=== PATIENT | female | born 1985 | race Two or more races ===

== ENCOUNTER 2022-11-11 16:36 | Emergency (ER) | payer BC ==
[~2022-11-11] VITALS: Ht 149.9 cm; Wt 69.5 kg
[2022-11-11 22:13] VITALS: TEMP 98.3
[2022-11-11] MEDS ORDERED: fentaNYL/PF 50MCG/1 ML 2ML syringe IV ONE (23:50)
[2022-11-11] MEDS ORDERED: ketorolac trometh. 30mg/ml inj. IV ONE (23:50)
[2022-11-11] MEDS ORDERED: metoclopramide 5 mg/ml inj IV ONE (23:50)
[2022-11-11] MEDS ORDERED: normal saline 1000ML IV soln IVB ONE (23:50)
[2022-11-11] MEDS ORDERED: LORazepam 2 mg/ml vial IV ONE (23:50)
[2022-11-12 00:22] LABS: BASOPHILS # (AUTO) 0.1 X10'3 (0-0.2); EOSINOPHILS % (AUTO) 0 % (0-6); HEMATOCRIT 41.2 % (35.0-45.0); HEMOGLOBIN 13.8 g/dl (12.0-16.0); LYMPHOCYTES # (AUTO) 1.5 X10'3 (1.1-4.8); LYMPHOCYTES % (AUTO) 12.5 % (21-51); MEAN CORPUSCULAR HEMOGLOBIN 26.8 PG (27.0-31.0); MEAN CORPUSCULAR HGB CONC 33.4 g/dL (33.0-36.5); MEAN CORPUSCULAR VOLUME 80.1 FL (78-98); MEAN PLATELET VOLUME 8.9 FL (7.4-10.4); MONOCYTES # (AUTO) 0.4 X10'3 (0-0.9); MONOCYTES % (AUTO) 3.3 % (2-12); NEUTROPHILS # (AUTO) 10.3 X10'3 (1.8-7.7); NEUTROPHILS % (AUTO) 83.2 % (42-75); PLATELET COUNT 282 X10'3 (140-440); RED BLOOD COUNT 5.15 X10'6 (4.20-5.60); RED CELL DISTRIBUTION WIDTH 14.7 % (11.5-14.5); WHITE BLOOD COUNT 12.4 X10'3 (4.5-11.0)
--- NOTE | 2022-11-12 00:22 | NUR ---
PT TO CT
[2022-11-12] MEDS ORDERED: labetalol 20mg/4ml (5mg/ml) syringe IV ONE (00:25)
--- NOTE | 2022-11-12 00:32 | NUR ---
PT BACK FROM CT
[2022-11-12 00:33] LABS: ALANINE AMINOTRANSFERASE 28 U/L (12-78); ALBUMIN 4.3 G/DL (3.4-5.0); ALKALINE PHOSPHATASE 70 IU/L (46-116); ANION GAP 8 (8-16); ASPARTATE AMINO TRANSFERASE 15 U/L (10-37); BILIRUBIN,TOTAL 1.2 MG/DL (0.1-1.0); BLOOD UREA NITROGEN 12 MG/DL (7-18); BUN/CREATININE RATIO 18.5 (10.0-20.0); CALCIUM 9.4 MG/DL (8.5-10.1); CHLORIDE 103 MMOL/L (99-107); CREATININE 0.65 MG/DL (0.40-0.90); GLUCOSE 102 MG/DL (70-104); MAGNESIUM 2.2 MG/DL (1.5-2.4); PHOSPHORUS 2.9 MG/DL (2.3-4.5); POTASSIUM 3.6 MMOL/L (3.5-5.1); SODIUM 140 MMOL/L (135-145); TOTAL CARBON DIOXIDE 29.1 MMOL/L (24-32); TOTAL PROTEIN 8.4 G/DL (6.4-8.2); eCRCL 80 ML/MIN; eGFR > 90 ML/MIN
[2022-11-12 00:47] LABS: APTT 25 SECONDS (22-32); PROTHROMBIN TIME 10.9 SECONDS (9.0-12.0)
--- NOTE | 2022-11-12 00:47 | NUR ---
LABETOLOL TO BE HELD FOR NOW, BP 142/88. PAMELA MANN AWARE AND OKRENETTA.
[2022-11-12] MEDS ORDERED: METO-292 PO (03:07)
[2022-11-12] MEDS ORDERED: ACET650S13 RC ×2 (03:07)
[2022-11-12] MEDS ORDERED: NAPR-56 PO (03:07)
[2022-11-12 03:53] VITALS: BP 136/89; PULSE 90; RESP 16; O2SAT 98
== END 2022-11-12 03:54 | disposition home or self-care (01) ==
LOC: ER 16:45
DX: G43.909 Migraine, unspecified, not intractable, without status migrainosus (principal); R11.2 Nausea with vomiting, unspecified; H53.8 Other visual disturbances; I10 Essential (primary) hypertension
CPT/HCPCS: 36415; 70450; 80053; 83735; 84100; 85025; 85610; 85651; 85730; 86140; 96361; 96374; 96375; 99285; J1885; J2060; J2765; J3010; J7030; A4615